=== PATIENT | male | born 1930 | race Hispanic/Latino ===

== ENCOUNTER 2016-08-27 15:43 | Outpatient (CLI) | payer MEDICARE ==
--- NOTE | 2016-08-28 07:41 | XRay Report ---
ROUTINE CHEST, TWO VIEWS: HISTORY: Cough. The trachea, heart, mediastinal contour, lung alcantar and bony thorax are unremarkable. IMPRESSION: Unremarkable chest x-ray.
== END 2016-08-27 15:44 | disposition home or self-care (01) ==
LOC: SPVIMAG 15:43
PROVIDERS: ATTEND Internal Medicine Hematology & Oncology
DX: R05 Cough (principal)
CPT/HCPCS: 71020

== ENCOUNTER 2019-04-26 11:30 | Outpatient (CLI) | payer MEDICARE ==
--- NOTE | 2019-04-26 14:28 | Cat Scan Report ---
CT ABDOMEN AND PELVIS WITHOUT CONTRAST INDICATION / CLINICAL INFORMATION: Q61.00 RENAL CYST. TECHNIQUE: Axial CT images were obtained through the abdomen and pelvis without IV contrast. All CT scans at [facility] are performed using CT dose reduction for ALARA by means of automated exposure control. COMPARISON: None available. FINDINGS: LOWER CHEST: No significant abnormality. LIVER: There is a 2.5 cm cyst in the left lobe the liver. GALLBLADDER: No significant abnormality. BILE DUCTS: No significant abnormality. PANCREAS: No significant abnormality. SPLEEN: No significant abnormality. ADRENALS: No significant abnormality. RIGHT KIDNEY and URETER: No significant abnormality. LEFT KIDNEY and URETER: There are hypodensities in the left kidney. The largest measures 7.5 cm. Thes e measure water density and are characteristic of cysts. STOMACH and SMALL BOWEL: No significant abnormality. 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 PERITONEUM: No free fluid. No free air. No fluid collection. LYMPH NODES: No significant adenopathy. AORTA and ARTERIES: Atherosclerotic calcifications are noted in the aorta and iliac arteries IVC and VEINS: No significant abnormality. URINARY BLADDER: No significant abnormality. 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 The patient has a left hip arthroplasty . IMPRESSION: 1. There are cysts noted in the left kidney. The largest measures 7.5 cm 2. There is a large parastomal hernia containing loops of bowel in the left lower quadrant. 3. There is atherosclerotic disease. 4. Changes of prior prostatectomy are noted Signer Name: Aris Chance MD Signed: 04/26/2019 2:23 PM Workstation Name: [id number]
== END 2019-04-26 11:31 | disposition home or self-care (01) ==
LOC: CT 11:30
PROVIDERS: ATTEND Urology
DX: Q61.00 Congenital renal cyst, unspecified (principal); I25.10 Atherosclerotic heart disease of native coronary artery without angina pectoris; Z87.891 Personal history of nicotine dependence
CPT/HCPCS: 74176